=== PATIENT | female | born 1950 | race Caucasian/White ===

== ENCOUNTER → 2018-02-05 | Outpatient (CLI) | payer BC, MEDICARE ==
[~2018-02-05] MED LIST: AMLO5; AMOCLA500 PO; Aspirin EC81 MG; CALC1.25T; CONEST.625; ERGO400; ESOM20; FISH1000; GLUCOSAMINE &1 EACH; HYDACE5 PO; LEVSOD88; LORA.5; METF500C; MULVITMIND; OMEP20ER; RAMI2.5; RXHYDACE PO; SERT25; SIMV40; STOOL SOFTENER50 MG; TOCO1000; VERA120ER PO; ZOLP10; ZOLP5
== END | disposition home or self-care (01) ==
LOC: LAB SHORT 12:20 → LAB EV 12:20
DX: N39.0 Urinary tract infection, site not specified (principal)
CPT/HCPCS: 87086

== ENCOUNTER 2018-03-27 08:19 | Day surgery (SDC) | payer MEDICARE, BC ==
[~2018-03-27] VITALS: Ht 172.7 cm; Wt 75.3 kg
== END 2018-03-27 10:28 | disposition home or self-care (01) ==
LOC: ORSCSDS 08:19
PROVIDERS: Internal Medicine Gastroenterology
PROC: 0DB88ZX Excision of Small Intestine, Via Natural or Artificial Opening Endoscopic, Diagnostic (ICD-10-PCS; principal; 2018-03-27 09:45)
PROC: 0DB58ZX Excision of Esophagus, Via Natural or Artificial Opening Endoscopic, Diagnostic (ICD-10-PCS; principal; 2018-03-27 09:45)
DX: K22.70 Barrett's esophagus without dysplasia (principal); E11.9 Type 2 diabetes mellitus without complications; Z79.82 Long term (current) use of aspirin; Z79.84 Long term (current) use of oral hypoglycemic drugs; Z79.899 Other long term (current) drug therapy; K29.80 Duodenitis without bleeding
CPT/HCPCS: 82947; 87081; 88305

== ENCOUNTER 2020-06-28 08:39 | Day surgery (SDC) | payer MEDICARE, BC ==
[~2020-06-28] VITALS: Ht 172.7 cm; Wt 73.9 kg
[~2020-06-28 08:39] MED LIST changes: +AMLO5 PO; +CLOP75 PO; +ERGO400 PO; +EUTHYROX88 MCG PO; +FISH OIL 1,2001 EAC7 PO; +METF500 PO; +RAMI5 PO; +SERT100 PO; +TOPI25 PO; +Zocor40 MG PO
== END 2020-06-28 11:10 | disposition home or self-care (01) ==
LOC: ORSCSDS 08:39
PROVIDERS: Internal Medicine Gastroenterology
PROC: 0DBP8ZX Excision of Rectum, Via Natural or Artificial Opening Endoscopic, Diagnostic (ICD-10-PCS; principal; 2020-06-28 09:45)
DX: Z12.11 Encounter for screening for malignant neoplasm of colon (principal); Z86.010 Personal history of colon polyps; D12.8 Benign neoplasm of rectum; Z80.0 Family history of malignant neoplasm of digestive organs; K57.30 Diverticulosis of large intestine without perforation or abscess without bleeding; K62.82 Dysplasia of anus; E03.9 Hypothyroidism, unspecified; E11.9 Type 2 diabetes mellitus without complications; Z86.73 Personal history of transient ischemic attack (TIA), and cerebral infarction without residual deficits; Z79.899 Other long term (current) drug therapy; Z79.84 Long term (current) use of oral hypoglycemic drugs; Z79.01 Long term (current) use of anticoagulants
CPT/HCPCS: 82947; 88305; 88342; J2704; J7120

== ENCOUNTER → 2023-02-02 | Outpatient (CLI) | payer MEDICARE, BC ==
[2023-02-02 09:36] LABS: BASOPHILS ABSOLUTE AUTO 0.06 K/mm3 (0.00-0.23); BASOPHILS PERCENT AUTO 1 % (0-2); EOSINOPHILS ABSOLUTE AUTO 0.44 K/mm3 (0.00-0.68); EOSINOPHILS PERCENT AUTO 6 % (0-6); Hemoglobin 13.3 g/dL (11.5-16.0); IMMATURE GRAN ABSOLUTE AUTO 0.02 K/mm3 (0.00-0.10); IMMATURE GRAN PERCENT AUTO 0 % (0-1); LYMPHOCYTES ABSOLUTE AUTO 1.09 K/mm3 (0.84-5.20); LYMPHOCYTES PERCENT AUTO 16 % (21-46); MONOCYTES ABSOLUTE AUTO 0.69 K/mm3 (0.16-1.47); MONOCYTES PERCENT AUTO 10 % (4-13); Mean Corpuscular HGB 28.9 pg (26.0-34.0); Mean Corpuscular HGB Conc 32.4 g/dL (31.5-36.5); Mean Corpuscular Volume 89 fL (80-100); Mean Platelet Volume 10.8 fL (9.1-12.4); NEUTROPHILS ABSOLUTE AUTO 4.55 K/mm3 (1.96-9.15); NEUTROPHILS PERCENT AUTO 66 % (41-73); Platelet Count 210 K/mm3 (150-400); RDW Coefficient Variation 14.4 % (11.7-14.2); RDW Standard Deviation 46.8 fL (35.1-46.3); White Blood Cell Count 6.85 K/mm3 (4.00-11.30)
[2023-02-02 09:56] LABS: Albumin, Blood 3.4 g/dL (3.4-5.0); Albumin/Globulin Ratio 0.7 (0.8-1.8); Bilirubin, Total 1.9 mg/dL (0.1-1.0); Bun/Creatinine Ratio 12.9 (12.0-20.0); Calcium, Blood 9.1 mg/dL (8.5-10.1); Creatinine, Blood 1.24 mg/dL (0.40-1.00); Globulin, Blood 4.6 g/dL (2.2-4.0); Potassium, Blood 3.6 mmol/L (3.5-5.5)
[2023-02-04 06:08] LABS: HBSAG SCREEN Negative (Negative); HCV AB Non Reactive (Non Reactive); HEP A AB, IGM Negative (Negative); HEP B CORE AB, IGM Negative (Negative)
== END | disposition home or self-care (01) ==
LOC: LAB SHORT 08:50
PROVIDERS: Physician Assistant
DX: R53.83 Other fatigue (principal); R53.1 Weakness; R79.89 Other specified abnormal findings of blood chemistry
CPT/HCPCS: 80053; 80074; 83690; 85025; 87086